=== PATIENT | female | born 1975 | race Caucasian/White ===

== ENCOUNTER 2017-12-08 21:54 | Emergency (ER) | payer OTHER ==
[~2017-12-08 21:54] MED LIST: Iopamidol 370 76% 100 ML VIAL ONE
[2017-12-08] MEDS ORDERED: Fentanyl 100 MCG/2 ML VIAL ONE (22:22)
[2017-12-08 22:25] LABS: #Eosinphils 0.3 thou/uL (0.0-0.7); #Lymphocytes 3.9 thou/uL (1.20-3.40); #Neutrophils 8.7 thou/uL (1.40-6.50); %Basophils 0.4 % (0.0-1.0); %Eosinophils 2.4 % (0.0-10.0); %Lymphocytes 27.6 % (21.0-51.0); %Neutrophils 62.7 % (42.0-75.0); Hemoglobin 14.3 g/dL (12.0-16.0); Mean Corpuscular HGB CONC 33.3 g/dL (32.0-36.0); Mean Corpuscular Hemoglobin 31.5 pg (27.0-31.0); Mean Corpuscular Volume 94.9 fL (78.0-98.0); Mean Platelet Volume 7.6 fL (7.4-10.4); Platelet Count 267 thou/uL (130-400); RBC Distribution Width 11.4 % (11.5-14.5); Red Blood Cell (RBC) Count 4.53 mill/uL (4.20-5.40); White Blood Cell (WBC) Count 13.9 thou/uL (4.8-10.8)
[2017-12-08 22:33] LABS: BHCG - Serum Negative (NEGATIVE); Pregs Control Background? CLEAR/WHITE (CLR/WHITE); Pregs Control Bar Appear? YES (CONTROL BAR)
[2017-12-08 22:35] LABS: ALT (SGPT) 9 U/L (8-55); AST (SGOT) 15 U/L (5-34); Albumin 4.5 g/dL (3.5-5.0); Alkaline Phosphatase 51 U/L (40-150); Anion Gap 13 mmol/L (10-20); BUN (Urea Nitrogen) 18 mg/dL (7.0-18.7); Bilirubin, Total 0.5 mg/dL (0.2-1.2); CK (CPK) 51 U/L (29-168); Calc. Creatinine Clearance 0 mL/min (70-130); Calcium 9.7 mg/dL (7.8-10.44); Carbon Dioxide 29 mmol/L (22-29); Chloride 100 mmol/L (98-107); Estimated GFR-MDRD 82; Globulin 3.1 g/dL (2.4-3.5); Glucose 88 mg/dL (70-105); Potassium 3.9 mmol/L (3.5-5.1); Protein, Total 7.6 g/dL (6.0-8.3); Sodium 138 mmol/L (136-145)
[2017-12-08 22:37] LABS: CKMB 0.7 ng/mL (0-6.6); Troponin I Less than 0.010 ng/mL (< 0.028)
--- NOTE | 2017-12-08 23:02 | CT ---
CTA CHEST WITH 3D VOLUME RENDERING WITH CONTRAST: 12/08/17 CLINICAL HISTORY: Dyspnea. FINDINGS: No evidence of a significant filling defect of pulmonary arteries. Thoracic aorta is nonaneurysmal. There is no lobar consolidation, effusion or pneumothorax. No acute osseous pathology. IMPRESSION: No evidence of an acute pulmonary embolus. POS: [id number]
== END 2017-12-08 23:33 | disposition home or self-care (01) ==
LOC: SCSER 21:54
DX: R07.89 Other chest pain (principal)
CPT/HCPCS: 71275; 80053; 82553; 83690; 84484; 84703; 85025; 93005; 96374; J3010